=== PATIENT | male | born 1960 | race Caucasian/White ===

== ENCOUNTER → 2016-09-23 | Day surgery (SDC) | payer OTHER ==
[~2016-09-23] MED LIST: BUPIVACAINE HCL PF 0.5% 30 ML VIAL ONE; BUPIVACAINE HCL PF 0.75% 30 ML VIAL ONE; LACTATED RINGER'S 1,000 ML BAG IV ONE; LACTATED RINGER'S 1000 ML INJ 1,000 ML ONE; LIDOCAINE 1.5%/EPINEPHrine 1:200,000 PF SOLN 30 ML AMP ONE; MEPERIDINE HCL 50 MG/ML VIAL ONE; MIDAZOLAM HCL 5 MG/ML VIAL (1 ML) ONE; ONDANSETRON HCL 4 MG/2 ML VIAL IV PUSH ONE; PROPOFOL 500 MG/50 ML BTL IV ONE; ceFAZolin 2 GM PREMIX 50 ML ONE
--- NOTE | 2016-09-26 05:31 | MP ---
cc: KAILEY REAGAN DPM DATE OF : 1960 DATE OF SURGERY: 09/23/2016 PREOPERATIVE DIAGNOSIS: 1. Left hind foot valgus. 2. Left hind foot arthritis. 3. Ankle equinus. 4. Posterior tibial tendon dysfunction. POSTOPERATIVE DIAGNOSIS 1. Left hind foot valgus. 2. Left hind foot arthritis. 3. Ankle equinus. 4. Posterior tibial tendon dysfunction. PROCEDURE: 1. Left gastrocnemius fascia release. 2. Left subtalar joint fusion. 3. Left talonavicular fusion. 4. Resection, then reapproximation of left tibialis anterior tendon. 5. Left bone putty within joints. SURGEON: Nica Reagan DPM [employer]OD PATTERNMAKER: Staff. ANESTHESIA: General with popliteal block preoperatively mixed with 20 cc of 0.5 Marcaine plain postoperatively. ESTIMATED BLOOD LOSS: 150 cc TOURNIQUET TIME: 300 mmHg, left thigh, 164 minutes total tourniquet time SPECIMEN: None. COMPLICATIONS: None. INDICATIONS FOR PROCEDURE: This patient is a 55-year-old male with a chief complaint of left severe hind foot valgus with posterior tibial tendon dysfunction with severe subtalar and talonavicular arthritis with the forefoot abduction. The patient is requesting surgical intervention for the problem at this time due to pain and loss of function. The patient understands the procedure performed today as well as potential risks and complications involved. All questions were answered. The risks versus benefits discussed at length. Consent was obtained preoperatively. The risks involved nerve damage, loss of muscle function, stiffness in the ankle, infection, risk of amputation. The patient understands these and would like to proceed. DESCRIPTION OF PROCEDURE: The patient was brought to the operating room, placed on the operating room table in supine position. Pneumatic thigh tourniquet was placed about the left thigh. The foot was scrubbed, prepped and draped in the usual sterile fashion. The patient was able to wiggle his toes after the block so I did not feel confident that the popliteal block took but after the foot was scrubbed, prepped and draped in the usual sterile fashion, first attention was directed two fingerbreadths below the medial head of the gastrocnemius in which a 4 cm longitudinal incision was made on the medial leg. Care was taken to avoid all vital structures. The neurovascular structures were reflected inferiorly and once through the level of the interosseus fascia, the gastroc fascia was identified and using a 15 blade and careful protection, the gastroc fascia was released. The area was copiously flushed. The interosseus fascia was reapproximated with Vicryl. Vicryl was used to close the subcutaneous tissue. Nylon was used to close the skin. Next attention was directed. C-arm was used to reveal medial lateral view of the foot in the foot position. Using the C-arm the incision was marked out. It was inferior and posterior to the medial malleolus, carried down to the level of the first tarsal metatarsal joint following the course of the posterior tibial tendon. The incision was deepened and iris scissor was used to go deep in the incision. There was found to be a lot of varicosities which had to be cauterized and few tied off. Once the level of the posterior tibial tendon sheath was opened, the tendon was found to be very lax. It was not found to have any rupture. The tendon, therefore, was no function prior and with the fusion at hand, the posterior tibial tendon was resected. Once to the level of the joint the talar head was exposed which was very plantar and medial. The subtalar joint itself was extremely lateral. The subtalar joint under meticulous dissection was identified. Distractor was used to distract the joint. It was very difficult to free up. Next attention was directed distally to the talonavicular joint in which excessive fibrosis and scarring was excised and the naviculars found to be very inferior and lateral to the talar head. Distraction was used to open the joint. The cartilage was removed on both the talar head and navicular. A sagital saw was used to have to resect a portion following the curvature of the talar head in order to shorten the medial column in order to get the foot reduced. Cartilage was removed on the talus and the navicular. Next the sagital saw with distraction subtalar joint was used to free up the bone that was blocking the calcaneus from sliding under the talus, with the cartilage removed on the subtalar joint was clearly identified. The flexor hallucis longus was not identified but care was used to avoid the structures posterior to the sustentaculum sylvain. With the cartilage removed and the subtalar joint planed out in order to be properly reduced, the area was copiously flushed and a K-wire was used from posterior inferior calcaneus into the talar neck and a 6.5 Deon cannulated screw by Arthrex was used. Heel position was checked before and after screw fixation. The C-arm was used to reveal a neutral to slight valgus at approximately 2 degrees of the heel. Achilles was found to be in much better position preoperatively. (The subtalar joint preop was 12 degrees valgus), now in much better alignment and the subtalar joint nice and compressed. The incision was taken slightly distal to the navicular cuneiform joint. The navicular cuneiform joint cartilage was left intact but was freed up in order to place a medial column plate but due to the curvature of the navicular, the plate would not have good fixation and therefor was not used. The large bone spur on the talar head dorsally was removed with rongeur with the talonavicular now in great alignment under C-arm in which there was no identifiable talar uncovering of the navicular, where prior it was almost 80%. It was found to be at 0 to 5% uncovered and with great alignment. Three Arthrex screws were placed from navicular to talus. C-arm was used to reveal good position. A central screw that was a 3 Deon screw was placed and then two 4-0 headless screws were placed from the navicular into the talar head and neck. C-arm was used to reveal nothing in the ankle joint. It had great fixation. Joints were compressed and narrowed. Next the area was copiously flushed and 5 cc of bone putty was placed in the subtalar joint and really no room to place the talonavicular joint due to great compression. Prior to extending the distal incision to the navicular cuneiform, the tib anterior tendon had to be transected in order to expose the joint. After the bone putty was placed in the joint, using Vicryl suture, the tib anterior tendon was reapproximated and found to be taut and in good position. Vicryl was used to close deep structures for layered closure. Vicryl was used to close subcutaneous tissue. Nylon was used to close the skin. Nylon was used to close the skin on the posterior heel as well, 20 cc of 0.5 Marcaine plain was injected in an ankle block format. Adaptic, 4x4s, ABD, cast padding and a posterior splint was placed. The patient handled anesthesia well. SETH Cervantes/JENNIFER /3:00 PM /4:04 AM TREVOR
== END | disposition home or self-care (01) ==
LOC: ESDC 08:50
PROVIDERS: ATTEND Podiatrist Foot & Ankle Surgery
DX: M19.072 Primary osteoarthritis, left ankle and foot (principal); M20.12 Hallux valgus (acquired), left foot; M21.6X2 Other acquired deformities of left foot
CPT/HCPCS: 01474; 01480; 27687; 28725; 28740; 64450; 73630; 76000; C1713; J0690; J2175; J2250; J2405; J3010; J7120